=== PATIENT | male | born 1960 | race Caucasian/White ===

== ENCOUNTER 2018-03-29 09:58 | Emergency (ER) | payer BC ==
[~2018-03-29] VITALS: Ht 172.7 cm; Wt 92.8 kg
[2018-03-29 10:15] VITALS: BP 139/89
[2018-03-29] MEDS ORDERED: LIDOcaine 1.5% w/epinephrine 1:200,000 5ml ampul IJ ONE (10:25)
[2018-03-29] MEDS ORDERED: SULF1TAB49 PO (10:55)
== END 2018-03-29 11:04 | disposition home or self-care (01) ==
LOC: ER 09:59
DX: L72.3 Sebaceous cyst (principal); L02.212 Cutaneous abscess of back [any part, except buttock and flank]
CPT/HCPCS: 10060; 99283; A6266; A6449; J3490